=== PATIENT | female | born 1930 | race Caucasian/White ===

== ENCOUNTER 2016-11-29 | Outpatient (CLI) | payer MEDICARE | END 2016-11-29 19:52 | disposition critical access hospital (66) | CPT/HCPCS: A0425; A0427 ==

== ENCOUNTER 2016-11-29 20:28 | Emergency (ER) | payer MEDICARE ==
[2016-11-29] MEDS ORDERED: SODIUM CHLORIDE 0.9% 1,000 ML IV ONE (20:56)
[2016-11-29] MEDS ORDERED: IOPAMIDOL-300 100 ML VIAL IVP ONE (22:21)
[2016-11-30] MEDS ORDERED: KETOROLAC 60 MG/2 ML VIAL IVP STA (00:47)
[2016-11-30] MEDS ORDERED: KETOROLAC 30 MG/ML VIAL ONE (01:05)
== END 2016-11-30 09:08 | disposition home or self-care (01) ==
DX: E86.0 Dehydration (principal); S32.000A Wedge compression fracture of unspecified lumbar vertebra, initial encounter for closed fracture; W06.XXXA Fall from bed, initial encounter; R10.31 Right lower quadrant pain; K80.20 Calculus of gallbladder without cholecystitis without obstruction; I10 Essential (primary) hypertension; E03.9 Hypothyroidism, unspecified; I44.7 Left bundle-branch block, unspecified; Z95.0 Presence of cardiac pacemaker; Z79.82 Long term (current) use of aspirin
CPT/HCPCS: 36415; 74177; 76705; 80053; 81001; 83690; 85025; 93005; 93010; 96374; 99284; Q9967

== ENCOUNTER 2017-01-16 15:51 | Outpatient (CLI) | payer MEDICARE | END 2017-01-16 15:52 | disposition home or self-care (01) | DX: R14.3 Flatulence (principal); M41.85 Other forms of scoliosis, thoracolumbar region ==

== ENCOUNTER 2017-02-01 08:06 | Outpatient (CLI) | payer MEDICARE ==
[2017-02-01] MEDS ORDERED: IOVERSOL-300 50 ML VIAL PO ONE (10:28)
[2017-02-01] MEDS ORDERED: IOPAMIDOL-300 100 ML VIAL IVP ONE (10:28)
== END 2017-02-01 08:07 | disposition home or self-care (01) ==
DX: K80.20 Calculus of gallbladder without cholecystitis without obstruction (principal); K57.30 Diverticulosis of large intestine without perforation or abscess without bleeding
CPT/HCPCS: 74177; Q9967

== ENCOUNTER 2017-03-22 22:28 | Emergency (ER) | payer MEDICARE ==
[2017-03-22 23:12] LABS: BASOPHILS % (AUTO) 0.4 %; HCT - HEMATOCRIT 34.1 % (37.0-47.0); HGB - HEMOGLOBIN 12.1 g/dL (12.0-16.0); LYMPHOCYTES # (AUTO) 1.6 10^3/uL (1.5-3.5); LYMPHOCYTES % (AUTO) 14.6 %; MEAN CORPUSCULAR HEMOGLOBIN 35.6 pg (27.0-31.0); MEAN CORPUSCULAR HGB CONC 35.6 g/dL (32.0-36.0); MEAN PLATELET VOLUME 6.5 fL (7.9-10.8); MONOCYTES # (AUTO) 1.2 10^3/uL (0.0-1.0); MONOCYTES % (AUTO) 11.1 %; NEUTROPHILS % (AUTO) 73.9 %; NUCLEATED RED BLOOD CELLS AUTO 0.1 /100WBC; RED BLOOD COUNT 3.41 10^6/uL (4.20-5.40); RED CELL DISTRIBUTION WIDTH 13.6 % (12.0-15.0); UNCORRECTED WHITE BLOOD COUNT 10.9 x10^3/uL; WHITE BLOOD COUNT 10.9 x10^3/uL (4.8-10.8)
[2017-03-22 23:15] LABS: BILIRUBIN,URINE NEGATIVE (NEGATIVE); PH,URINE 6.5 PH (5.0-7.5)
[2017-03-22 23:17] LABS: UA w/ MICROSCOPIC CHARGE YES
[2017-03-22 23:21] LABS: UR CULTURE IF IND INDICATED; WBC,URINE >25 /HPF (0-5)
[2017-03-22 23:23] LABS: ALBUMIN/GLOBULIN RATIO 1.4 (1.0-2.2); BILIRUBIN,TOTAL 0.6 mg/dL (0.2-1.0); CALCIUM 8.9 mg/dL (8.5-10.3); MAGNESIUM 2.1 mg/dL (1.7-2.8); PHOSPHORUS 3.4 mg/dL (2.5-4.6); POTASSIUM 3.8 mmol/L (3.5-5.0); TOTAL PROTEIN 6.1 g/dL (6.7-8.2)
[2017-03-23 00:46] VITALS: BP 165/87
[2017-03-23] MEDS ORDERED: NITROFURANTOIN MACRO 100 MG CAPSULE PO STA (00:46)
[2017-03-23] MEDS ORDERED: NITROFURANTOIN MACRO 100 MG CAPSULE PO ONE (00:48)
--- NOTE | 2017-03-23 01:10 | Ultrasound Preliminary Report ---
Exam: US Abdomen Limited IMPRESSION: 1. Patient body habitus compromises exam sensitivity and specificity. 2. Gall bladder could not be visualized. No biliary dilation. No right upper quadrant tenderness. 3. Increased vertical echogenicity of the right kidney, medical renal disease. There is a 10 mm cyst within the mid to lower kidney. 4. Coarsened hepatic parenchymal echotexture, indicating underlying possible cirrhosis. [facility] SITE ID: [id number]
--- NOTE | 2017-03-23 01:13 | Ultrasound Report ---
EXAM: ABDOMEN ULTRASOUND LIMITED, RUQ EXAM DATE: 03/23/2017 12:39 AM. CLINICAL HISTORY: Vertigo and pain, with history of stones. COMPARISON: CT 02/01/2017 TECHNIQUE: Real-time scanning was performed with static images obtained. FINDINGS: Patient body habitus compromises exam sensitivity and specificity. Liver: Diffuse heterogeneous coarsened echogenicity. No suspicious focal lesion. Nonspecific tiny 5 m m left hepatic lobe calcification. Liver measures 17 cm in length. Portal Vein: Patent with hepatopetal flow. Gallbladder: Could not be visualized with certainty. No right upper quadrant tenderness. Biliary System: CBD measures 3.75.0 mm. No intrahepatic or extrahepatic ductal dilatation. Pancreas: Obscured by overlying structures. Right Kidney: Right kidney measures 10.1 cm in length. diffuse increased parenchymal echogenicity of the right kidney. Other: None. IMPRESSION: 1. Patient body habitus compromises exam sensitivity and specificity. 2. Gall bladder could not be visualized. No biliary dilation. No right upper quadrant tenderness. 3. Increased vertical echogenicity of the right kidney, medical renal disease. There is a 10 mm cyst within the mid to lower kidney. 4. Coarsened hepatic parenchymal echotexture, indicating underlying possible cirrhosis. [facility] Referring Provider Line: [phone] SITE ID: [id number]
--- NOTE | 2017-03-23 01:14 | ED Physician Documentation ---
PD HPI ABD PAIN - Stated complaint Stated Complaint: ABD PX - Chief complaint Chief Complaint: Abd Pain - History obtained from History obtained from: Patient, Family - History of Present Illness Timing - onset: How many days ago (2) Timing - details: Gradual onset, Still present Quality: Cramping, Sharp Location: RUQ Worsened by: Eating, Position Associated symptoms: No: Fever, Nausea, Vomiting, Hematemesis, Diarrhea, Constipation, Dysuria, Hematuria Similar symptoms before: Work up / diagnostics, Treatment, Follow up Recently seen: Not recently seen - Additional information Additional information: Patient is an 86 year old female with a history of abdominal pain, gallstones who is presenting to the emergency department for abdominal pain. Patient states that she almost always has some pain, and has had extensive work up for it, but for the last couple of days she has had ruq pain. Upon initial evaluation in the emergency department patient was in no acute distress and was well appearing. Review of Systems Constitutional: denies: Fever, Chills Eyes: denies: Loss of vision, Decreased vision Ears: denies: Ear pain, Drainage/discharge Nose: denies: Rhinorrhea / runny nose, Congestion Throat: denies: Dental pain / toothache, Sore throat Cardiac: denies: Chest pain / pressure, Palpitations Respiratory: denies: Cough, Wheezing GI: reports: Abdominal Pain. denies: Nausea, Vomiting, Constipation, Diarrhea : denies: Dysuria, Frequency, Hesitancy Skin: denies: Rash, Lesions Neurologic: denies: Generalized weakness, Focal weakness, Numbness Immunocompromised: denies: Immunocompromised PD PAST MEDICAL HISTORY - Past Medical History Cardiovascular: Hypertension, Arrhythmia Respiratory: Tuberculosis Neuro: None Endocrine/Autoimmune: HyPOthyroidism GI: None : None HEENT: Chronic hearing loss Psych: None Musculoskeletal: Osteoarthritis Derm: None - Past Surgical History Past Surgical History: Yes Ortho: Knee replacement /[employer]: section, Hysterectomy Cardiovascular: Pacemaker - Present Medications Home Medications: Ambulatory Orders Medication Instructions Recorded Confirmed Aspirin 81 mg PO DAILY 05/25/13 04/12/16 Levothyroxine [Synthroid] 150 mcg PO DAILY 05/25/13 04/12/16 Simvastatin [Zocor] 0 mg PO QPM 05/25/13 04/12/16 Carvedilol 0 mg PO QPM 07/11/14 04/12/16 Fluoxetine HCl 0 mg PO DAILY 07/11/14 04/12/16 Furosemide 0 mg PO BID 07/11/14 04/12/16 Trazodone HCl 0 mg PO QPM 07/11/14 04/12/16 Nitrofurantoin Monohyd/M-Cryst 100 mg PO BID 5 Days 03/23/17 [Macrobid 100 mg Capsule] Phenazopyridine HCl [Pyridium] 200 mg PO TID PRN #6 tablet 03/23/17 - Allergies Allergies/Adverse Reactions: Allergies Allergy/AdvReac Type Severity Reaction Status Date / Time codeine [Codeine] Allergy Intermediate Rash Verified 03/22/17 22:45 - Social History Does the pt smoke?: No Smoking Status: Never smoker Does the pt drink ETOH?: No Does the pt have substance abuse?: No - Immunizations Immunizations are current?: Yes - POLST Patient has POLST: No PD ED PE NORMAL - Vitals Vital signs reviewed: Yes (within normal limits) - General General: Alert and oriented X 3, No acute distress - HEENT HEENT: Atraumatic, PERRL - Neck Neck: Supple, no meningeal sign - Cardiac Cardiac: RRR, No murmur - Derm Derm: Normal color, Warm and dry, No rash - Extremities Extremities: No deformity - Neuro Neuro: Alert and oriented X 3, No motor deficit - Psych Psych: Normal mood PD ED PE EXPANDED - General General: Alert, No acute distress - HEENT HEENT: Dry mucous membranes - Respiratory Respiratory: Other (course breath sounds, supplemental 02 oxygen in placed ) - Abdomen Abdomen: Tender to palpation, RUQ. No: Distended, Rebound, Guarding Results - Vitals Vitals: Vital Signs - 24 hr 03/22/17 03/22/17 03/23/17 22:43 23:30 00:44 Temperature 36.6 C Heart Rate 70 71 74 Respiratory 18 18 18 Rate Blood Pressure 165/67 H 142/79 H 165/87 H O2 Saturation 97 100 100 Oxygen O2 Source Nasal cannula - Labs Labs: Laboratory Tests 03/22/17 03/22/17 03/22/17 22:48 22:48 22:48 WBC 10.9 H RBC 3.41 L Hgb 12.1 Hct 34.1 L MCV 100.0 H MCH 35.6 H MCHC 35.6 RDW 13.6 Plt Count 220 MPV 6.5 L Neut # 8.0 H Lymph # 1.6 [place] # 1.2 H Eos # 0.0 Baso # 0.0 Absolute Nucleated RBC 0.01 Nucleated RBCs 0.1 Sodium 129 L Potassium 3.8 Chloride 86 L Carbon Dioxide 34 H Anion Gap 9.0 BUN 24 H Creatinine 1.0 Estimated GFR (MDRD) 52 L Glucose 98 Calcium 8.9 Phosphorus 3.4 Magnesium 2.1 Total Bilirubin 0.6 AST 32 ALT 32 Alkaline Phosphatase 53 Troponin I < 0.04 Total Protein 6.1 L Albumin 3.6 Globulin 2.5 Albumin/Globulin Ratio 1.4 Lipase 25 Urine Color Urine Clarity Urine pH Ur Specific [place] Urine Protein Urine Glucose (UA) Urine Ketones Urine Occult Blood Urine Nitrite Urine Bilirubin Urine Urobilinogen Ur Leukocyte Esterase Urine RBC Urine WBC Ur Squamous Epith Cells Urine Bacteria Ur Microscopic Review Urine Culture Comments 03/22/17 22:55 WBC RBC Hgb Hct MCV MCH MCHC RDW Plt Count MPV Neut # Lymph # [place] # Eos # Baso # Absolute Nucleated RBC Nucleated RBCs Sodium Potassium Chloride Carbon Dioxide Anion Gap BUN Creatinine Estimated GFR (MDRD) Glucose Calcium Phosphorus Magnesium Total Bilirubin AST ALT Alkaline Phosphatase Troponin I Total Protein Albumin Globulin Albumin/Globulin Ratio Lipase Urine Color YELLOW Urine Clarity HAZY Urine pH 6.5 Ur Specific [place] 1.015 Urine Protein 30 H Urine Glucose (UA) NEGATIVE Urine Ketones NEGATIVE Urine Occult Blood SMALL H Urine Nitrite NEGATIVE Urine Bilirubin NEGATIVE Urine Urobilinogen 0.2 (NORMAL) Ur Leukocyte Esterase LARGE H Urine RBC 6-10 H Urine WBC >25 H Ur Squamous Epith Cells RARE Squamous Urine Bacteria Moderate H Ur Microscopic Review INDICATED Urine Culture Comments INDICATED - Rads (name of study) abd ultrasound Radiology: Final report received, See rad report (no biliary dilation, possible cirrhosis) PD MEDICAL DECISION MAKING - ED course Complexity details: reviewed old records, reviewed results, re-evaluated patient , considered differential, d/w patient, d/w family ED course: Patient was seen and examined at bedside. Patient was well appearing and in no acute distress. labs were drawn and urine was collected. Previous results were reviewed, patient had had imaging within the last two months which showed stones. imaging was ordered. when patient's diagnostics came back she was found to have a uti. patient was treated with macrobid and given instructions for biliary colic. patient required no further inpatient work up and was stable for discharge with outpatient follow up. Departure - Departure Disposition: 01 Home, Self Care Clinical Impression: Urinary tract infection, Biliary colic Condition: Good Instructions: ED Gallstone W Biliary Colic, ED UTI Cystitis Female Follow-Up: Freddie Vazquez MD [Primary Care Provider] - Within 3 Days Prescriptions: Nitrofurantoin Monohyd/M-Cryst [Macrobid 100 mg Capsule] 100 mg PO BID 5 Days Phenazopyridine HCl [Pyridium] 200 mg PO TID PRN #6 tablet PRN Reason: dysuria Comments: Your symptoms today are being caused by a urinary tract infection and biliary colic. for the urinary tract infection you had your first dose of antibiotics tonight and will need to take them twice a day for the next five days. for the biliary colic you will eventually need your gallbladder removed. In the meantime you should refrain from fatty, fried or spicey foods. You should call your doctor tomorrow to schedule a follow up appointment.
== END 2017-03-23 01:31 | disposition home or self-care (01) ==
LOC: ED 22:28
DX: N39.0 Urinary tract infection, site not specified (principal); K80.20 Calculus of gallbladder without cholecystitis without obstruction; I10 Essential (primary) hypertension; E03.9 Hypothyroidism, unspecified; Z79.82 Long term (current) use of aspirin
CPT/HCPCS: 36415; 76705; 80053; 81001; 83690; 83735; 84100; 84484; 85025; 87077; 87086; 87181; 99283; 99284; A9270; 81003